=== PATIENT | female | born 1980 | race Caucasian/White ===

== ENCOUNTER → 2017-10-15 | Outpatient (CLI) | payer BC ==
--- NOTE | 2017-10-15 17:20 | US ---
EXAM DESCRIPTION: Liver: ULTRASOUND. CLINICAL HISTORY: R10.11. Right upper quadrant pain. COMPARISON: None. TECHNIQUE: Transabdominal scannin-dimensional and Doppler modes. FINDINGS: Gallbladder: 4.9 mm echogenic nodule on the wall of the gallbladder nonmobile and nonshadowing. No stones or sludge. No fluid around the gallbladder. No wall thickening. 2.4 mm. Non-tender with transducer pressure. Common bile duct: caliber 5.4 mm within normal limits. Liver: Increased echogenicity; contour liver capsule smooth where seen. No fluid around the liver. Intrahepatic biliary ducts normal caliber. Doppler hepatopedal flow portal vein.. 6.6 mm caliber. Long axis right lobe cm Pancreas: Not well visualized due to intestinal gas. Right kidney: long axis measures 9.6 cm. Normal Echogenicity. Normal cortical thickness. No hydronephrosis IMPRESSION: 1. Steatosis of the liver with normal size. Smooth capsule and normal intrahepatic ducts. Normal vascularity and no ascites. Normal caliber of the common bile duct. 2. 5 mm polyp on the wall the gallbladder but no sludge or stones. No wall thickening or fluid. Nontender with transducer pressure. 3. Pancreas not well seen due to intestinal gas. 4. Normal ultrasound of the right kidney. Electronically signed by: Rocky Trotter MD 10/15/2017 5:19 PM CDT
== END ==
LOC: LAB.O 11:39
PROVIDERS: ATTEND Obstetrics & Gynecology
DX: R10.11 Right upper quadrant pain (principal); K76.0 Fatty (change of) liver, not elsewhere classified; K82.4 Cholesterolosis of gallbladder

== ENCOUNTER → 2017-10-28 | Outpatient (CLI) | payer BC ==
--- NOTE | 2017-10-28 09:27 | CT ---
EXAM DESCRIPTION: Abdomen w/Contrast CLINICAL HISTORY: 36 years Female, right upper quadrant pain. COMPARISON: Ultrasound of the right upper quadrant dated 10/15/2017. TECHNIQUE: Contiguous axial images through the abdomen were obtained with intravenous contrast administration. Sagittal and coronal reconstructions were reviewed. FINDINGS: The imaged lower thorax appears normal. The liver demonstrates mild fatty infiltration. The gallbladder, pancreas and spleen appear normal. No adrenal nodules or masses are visualized. Bilateral kidneys enhance symmetrically with no hydronephrosis or nephrolithiasis or perinephric fluid collections. Mild thickening of the distal esophagus could be secondary to reflux. The stomach is not well-distended limiting detailed evaluation. The visualized small and large bowel loops appear grossly unremarkable. The abdominal aorta demonstrates no significant atherosclerosis. The inferior vena cava is normal in size and caliber. No abnormally enlarged lymph nodes are identified. 2.5 cm midline abdominal wall defect is noted at the level of the umbilicus with herniation of fat. IMPRESSION: 1. Mild reflux esophagitis. 2. Hepatic steatosis. 3. 2.5 cm fat-containing umbilical hernia is noted. This exam was performed according to our departmental dose-optimization program, which includes automated exposure control, adjustment of the mA and/or kV according to patient size and/or use of iterative reconstruction technique. Electronically signed by: Zofia Wren MD 10/28/2017 9:25 AM CDT
== END ==
LOC: LAB.O 07:54
PROVIDERS: ATTEND Internal Medicine Gastroenterology
DX: R10.13 Epigastric pain (principal); K20.9 Esophagitis, unspecified; K76.0 Fatty (change of) liver, not elsewhere classified; K42.9 Umbilical hernia without obstruction or gangrene

== ENCOUNTER → 2018-08-20 | Outpatient (CLI) | payer BC | LOC: LAB.O 08:35 | PROVIDERS: ATTEND Obstetrics & Gynecology | DX: N92.0 Excessive and frequent menstruation with regular cycle (principal) ==

== ENCOUNTER 2019-01-24 13:00 | Observation (INO) | payer BC ==
[2019-01-24] MEDS ORDERED: SODIUM CHLORIDE 0.9% 1000ML 1,000 ML IVS ONE (13:28)
[2019-01-24] MEDS ORDERED: SODIUM CHLORIDE 0.9% (FLUSH) 10 ML SYG IV PRN ×2 (13:28→19:07)
[2019-01-24] MEDS ORDERED: ONDANSETRON INJ 4 MG/2 ML VIAL IV ONE (13:28)
[2019-01-24] MEDS ORDERED: DICYCLOMINE HCL INJ 20 MG/2 ML AMP IM ONE (13:29)
--- NOTE | 2019-01-24 15:19 | CT ---
EXAM DESCRIPTION: CT ABDOMEN AND PELVIS WITH CONTRAST CLINICAL HISTORY: RLQ pain COMPARISON: CT abdomen 10/28/2017. TECHNIQUE: CT of the abdomen and pelvis are performed with IV contrast. No oral contrast was given. Multiplanar reconstructions were obtained. FINDINGS: The lung bases are clear. The liver is normal in contour and enhancement. The gallbladder is surgically absent. No biliary ductal dilatation. The Spleen, pancreas, and kidneys are unremarkable. No hydronephrosis or nephrolithiasis. No bowel obstruction. The appendix is slightly patulous (measuring up to 8 mm in diameter) without periappendiceal fat stranding to suggest acute appendicitis. An approximately 2 cm rounded soft tissue attenuation (approximately 50 Hounsfield units) lesion is present within the distal sigmoid colon (approximately 8 cm from the rectosigmoid junction, axial image 67), nonspecific. No associated bowel obstruction. There is no lymphadenopathy, inflammation, or free fluid observed. The partially decompressed bladder is unremarkable. The reproductive organs are unremarkable. A tampon is present within the vagina. No acute osseous abnormality. IMPRESSION: 1. No acute intra-abdominal/pelvic process is seen on CT. 2. Prior cholecystectomy. 3. Incidentally noted 2 cm lesion within the distal sigmoid colon, nonspecific, and may represent a ball of stool versus intraluminal colon mass/polyp. Consider short-term outpatient follow-up with CT pelvis with IV and oral contrast versus direct visualization with colonoscopy. This exam was performed according to our departmental dose-optimization program, which includes automated exposure control, adjustment of the mA and/or kV according to patient size and/or use of iterative reconstruction technique. Electronically signed by: Samuel Irwin DO 01/24/2019 3:17 PM CDT
[2019-01-24] MEDS ORDERED: MORPHINE SULFATE INJ 10 MG/ML VIAL IV ONE (15:52)
--- NOTE | 2019-01-24 15:56 | ED.PDOC ---
History of Present Illness - General Chief Complaint: GI Problem Stated Complaint: RLQ abd pain Time Seen by Provider: 01/24/19 13:28 - History of Present Illness Abdominal Pain Onset Location: RLQ Pain Radiation: RLQ Quality: severe, sharpness Timing/Duration: 24 hours Improving Factors: nothing Worsening Factors: movement Associated Symptoms: nausea/vomiting Review of Systems - Review of Systems Constitutional: States: no symptoms reported EENTM: States: no symptoms reported Respiratory: States: no symptoms reported Cardiology: States: no symptoms reported Gastrointestinal/Abdominal: States: abdominal pain, nausea, vomiting Genitourinary: States: no symptoms reported Musculoskeletal: States: no symptoms reported Skin: States: no symptoms reported Neurological: States: no symptoms reported Endocrine: States: no symptoms reported Hematologic/Lymphatic: States: no symptoms reported Past Medical History (General) - Patient Medical History Hx Stroke: No Hx Asthma: Yes Hx of COPD: No Hx Cardiac Disorders: No Hx Hypertension: Yes Hx Diabetes: No Hx Gastroesophageal Reflux: Yes Hx Cancer: No Surgical History: cholecystectomy - Vaccination History Hx Tetanus, Diphtheria Vaccination: No Hx Influenza Vaccination: No Hx Pneumococcal Vaccination: No - Social History Hx Tobacco Use: No Hx Alcohol Use: Yes - Ocassional - Female History Patient is a Female of Child Bearing Age (10 -59 yrs old): Yes Patient : No - Denies Family Medical History - Family History Mother Family History: Unknown Physical Exam - Physical Exam General Appearance: Alert, Well Developed, Well Groomed, Well Hydrated, Well Nourished Eyes, Ears, Nose, Throat Exam: PERRL/EOMI Neck: non-tender, full range of motion, supple Respiratory: chest non-tender, lungs clear, normal breath sounds Cardiovascular/Chest: normal peripheral pulses, regular rate, rhythm, no edema Peripheral Pulses: No deficit Gastrointestinal/Abdominal: no organomegaly, no pulsatile mass, tenderness - RLQ tenderness Extremity: normal range of motion, non-tender, normal inspection Skin Exam: normal color, warm/dry Lymphatic: no adenopathy Progress - Progress Progress: 01/24/19 16:11 Pt d/w Atif Dolan agreed to admit CT scan d/w Dr Gusman radiology says that he might have early appendicitis Informed Dr Nehemias Robles agreed for the admission Departure - Departure Clinical Impression: Abdominal pain Disposition: Admit Patient Departure Forms: ED Discharge - Pt. Copy, Patient Portal Self Enrollment Instructions: DI for Abdominal Pain-Adult Diet: resume usual diet Activity: increase activity as tolerated, no exercise, no lifting, walking as tolerated Referrals: Vimal Jose MD [Primary Care Provider] - 1-2 Weeks Prescriptions: Dicyclomine HCl [Bentyl] 20 mg PO Q6HR #20 tab Ondansetron Odt [Zofran Odt] 4 mg PO Q8HR #20 tab Home Medications: Ambulatory Orders Dicyclomine HCl [Bentyl] 20 mg PO Q6HR #20 tab 01/24/19 Ondansetron Odt [Zofran Odt] 4 mg PO Q8HR #20 tab 01/24/19 Comments: Follow up PCP in 1-2 days
--- NOTE | 2019-01-24 16:26 | HP ---
SUPERVISING PHYSICIAN: Carlton Barraza MD CHIEF COMPLAINT: Right lower abdominal pain. HISTORY OF PRESENT ILLNESS: Ms. Rose is a 38 year-old female patient who presented to the Emergency Room today complaining of right lower quadrant pain that she noted was severe and sharp. She noted that yesterday she started having some nausea early in the morning. Around noon, she developed some severe nausea and ended up having some vomiting. She did go to work but had additional nausea and vomiting through the night and the pain worsened. It is noted that she is currently on her menstrual cycle and sometimes has pain in her abdomen but she says this is not similar to that type of pain. The pain worsened to the point that she presented to the Emergency Room. Initial workup in the Emergency Room showed she had a normal white count of 8,100 without a shift. Chemistries showed normal electrolytes except for a low potassium of 3.4. Urine was unremarkable with just a trace of blood. Radiology: Abdominal/pelvic CT showed no acute intraabdominal pelvic process seen. There was note that the appendix was slightly patulous measuring 8 mm in diameter but without any periappendiceal fat stranding to suggest acute appendicitis. On exam, the patient was showing severe pain to palpation in the right lower quadrant. She was showing to be hemodynamically stable and afebrile. Dr. Robles, general surgeon, was consulted for evaluation of right lower quadrant pain and recommended the patient be placed in observation overnight for further treatment with concerns for possibly developing acute appendicitis. She was placed in observation in stable condition. PAST MEDICAL HISTORY: 1. Hypertension. 2. Depression. 3. Asthma. 4. Chronic constipation. 5. Seasonal allergies. PAST SURGICAL HISTORY: 1. Tubal ligation. 2. Tummy tuck. 3. Cholecystectomy. CURRENT MEDICATIONS: 1. Promethazine 10 mg daily. 2. Singulair 10 mg daily. 3. Xyzal Allergy 5 mg daily. 4. Maxzide 75/50 mg, 1 tablet daily. 5. Lexapro 20 mg daily. ALLERGIES: Bismuth salicylate. FAMILY HISTORY: Father and mother are both alive. Mother has a history of colon polyps. Father has recently had a stroke, specifically ischemic type stroke. She has one sister who has mental challenges and has hypertension, depression, anxiety. SOCIAL HISTORY: Ms. Rose is and lives in [place]. She currently works in a [place] [employer] [place] for [employer]. She has never smoked, does not use illicit drugs or drink alcohol. REVIEW OF SYSTEMS: CONSTITUTIONAL: Denies fever, chills, general malaise. HEENT: Denies headaches, earache, sore throat, nasal congestion, vision changes. RESPIRATORY: Denies coughing, wheezing, shortness of breath CARDIAC: Denies chest pain, palpitations, syncopal episodes. GASTROINTESTINAL: As per history of present illness. Right lower quadrant with nausea and vomiting. History of constipation, no reported diarrhea. GENITOURINARY: Denies hematuria, dysuria, polyuria. NEUROLOGICAL: Denies ataxia, seizures, syncopal episodes or other neurological deficits. PHYSICAL EXAMINATION: VITAL SIGNS: Temperature 98.1, pulse 58, blood pressure 116/78, respirations 16, oxygen saturation 100% on room air. Admission weight 96.9 kg. GENERAL: The patient appears well-hydrated and well-nourished. She is moderately obese but showing to be in no acute distress. She does seem unwell but is resting comfortably and alert. HEENT: Tympanic membranes are clear bilaterally. Oropharynx is pink, moist without lesions. NECK: Supple, non-tender, full range of motion. No jugular venous distention. CHEST: Lungs clear to auscultation bilaterally without rhonchi, rales, or wheezes. CARDIOVASCULAR: Regular rate and rhythm without appreciable murmurs, rubs, or gallops. ABDOMEN: Soft, tenderness to palpation over the right lower quadrant with no rebound tenderness or guarding. No peritoneal signs. Bowel sounds were active. EXTREMITIES: Without cyanosis, clubbing, or edema. NEUROLOGIC: Alert and oriented x 3. LABORATORY: White count within normal limits at 8,200. Differential was without a left shift. Chemistries showed a mildly low potassium of 3.4, otherwise within normal limits. Creatinine 0.99, lipase normal at 26. Liver functions pending. Urinalysis showed tract of intact blood. RADIOLOGY: Abdominal/pelvic CT with contrast per radiology interpretation showed no acute intraabdominal or pelvic process seen. There was note the appendix was slightly patulous measuring up to 8 mm in diameter without any periappendiceal fat stranding. Please see that report for full details. ASSESSMENT: 1. Acute abdominal pain along the right lower quadrant with associated nausea and vomiting with concerns for developing acute appendicitis requiring surgical consultation. 2. History of hypertension. 3. History of depression. 4. History of asthma. 5. History of chronic constipation. PLAN: Ms. Rose is going to placed in observation. She will be made n.p.o. tonight. Surgical consultation has been ordered by who has seen the patient and recommends she be n.p.o. overnight with concerns that she may be developing an acute appendicitis which he will reassess in the morning and decide whether or not she needs to have a surgical intervention. We will give her pain medication, antiemetics as needed. She will be on fluids Will hold off on DVT prophylaxis until after tomorrow when it is seen whether or not she is actually going to have surgery. We will hold her medications until in the morning and resume those once she has appropriate care, once she is able to take oral intake. Will estimate her length of stay to be one to two days. Until we can transition her back to outpatient management, will continue to monitor and treat as needed. #[id number] [facility]
[2019-01-24] MEDS ORDERED: IV SET AND CAP CHANGE INJ INJ SCH (19:30)
[2019-01-24] MEDS: KCL 20MEQ/D5 1/2NS 1,000 ML IVS PRN (20:14)
[2019-01-24] MEDS: MORPHINE SULFATE INJ 10 MG/ML VIAL IV PRN (20:23)
[2019-01-24] MEDS: ONDANSETRON INJ 4 MG/2 ML VIAL IV PRN (20:23)
[2019-01-25] MEDS: KCL 20MEQ/D5 1/2NS 1,000 ML IVS PRN ×2 (05:05→18:06)
[2019-01-25] MEDS ORDERED: ALBUTEROL SULFATE 2.5 MG/3 ML VIAL NEB PRN (06:48)
[2019-01-25] MEDS: MORPHINE SULFATE INJ 10 MG/ML VIAL IV PRN ×2 (08:21→18:48)
[2019-01-25] MEDS: ONDANSETRON INJ 4 MG/2 ML VIAL IV PRN ×2 (08:31→18:48)
--- NOTE | 2019-01-25 14:43 | CONS ---
DATE OF CONSULTATION: 01/24/19 REASON FOR CONSULTATION: Abdominal pain. HISTORY OF PRESENT ILLNESS: The patient presents with one day of abdominal pain, right lower quadrant and cross the low abdomen associated with nausea and vomiting. No fevers or chills. No known sick contacts. No history of similar symptoms. She has had dysmenorrhea in the past, but she is on her period now and states this is different that what she has felt before. She has had no diarrhea. PAST MEDICAL HISTORY: 1. Hypertension. PAST SURGICAL HISTORY: 1. Tubal ligation. 2. Tummy tuck. FAMILY HISTORY: Noncontributory. SOCIAL HISTORY: She denies any illicit habits. REVIEW OF SYSTEMS: CONSTITUTIONAL: No fevers, no chills. HEENT: No headache, visual changes, sore throat. RESPIRATORY: No cough or wheeze. CARDIOVASCULAR: No chest pain or palpitations. GASTROINTESTINAL: As above. GENITOURINARY: No frequency, dysuria or hematuria. EXTREMITIES: No complaints. NEUROLOGIC: No complaints. PHYSICAL EXAMINATION: VITAL SIGNS: Afebrile. Vital signs are normal. GENERAL: She is conscious, awake, alert and oriented, in no distress. HEENT: Normocephalic, atraumatic. Pupils equal and reactive to light. Sclerae anicteric. Oral mucosa is moist. NECK: Supple. No adenopathy, jugular venous distention or thyromegaly. CHEST: Clear and equal bilaterally. No wheezing or crackles. HEART: Regular rate and rhythm. No murmurs, rubs or gallops. ABDOMEN: Obese, soft. There is tenderness. No rebound in the low abdomen. Mildly distractible, seems more over McBurney's point, but she is also tender just over hip bone. No CVA tenderness. No abnormalities in the skin. EXTREMITIES: No cyanosis, clubbing or edema. LABORATORY: Normal. RADIOLOGY: CT scan is read as normal but for a polyp appearing lesion in the distal sigmoid colon. No inflammation. The appendix is 8 mm, but otherwise normal. There was some mention from the Emergency Room physician talking to the radiologist about possible early appendicitis. IMPRESSION: 1. Abdominal pain, uncertain etiology. PLAN: Admit for observation. We will also address the polyp in her colon later. The patient did offer that her son had 3 polyps removed at the age of 5, but she has no known history of polyps or other gastric cancer in the family. She is admitted for observation and we discussed the possibility of laparoscopy or laparoscopic appendectomy. #[id number] [facility]
[2019-01-25] MEDS: NON-FORMULARY MEDICATION 1 EA MIS PO SCH ×2 (16:11→21:59)
--- NOTE | 2019-01-25 19:52 | PN ---
DATE: 12/3018 SUPERVISING PHYSICIAN: Eleazar Sheikh M.D. SUBJECTIVE: The patient is lying in bed. Her is at the bedside. He continues complaints of abdominal pain but no nausea or vomiting. No shortness of breath or chest pain. OBJECTIVE: VITAL SIGNS: Temperature 98.2, heart rate 80, blood pressure 114/78, respiratory rate 16, O2 sat 100% on room air. RESPIRATORY: Essentially clear to auscultation bilaterally. CARDIAC: Regular rate and rhythm. GASTROINTESTINAL: Abdomen is soft. It is nondistended. It is diffusely tender on the right lower quadrant but there is no rebound tenderness or guarding. NEUROLOGIC: She is awake, alert and oriented times three. LABORATORY: There are no labs or films to report at this time. ASSESSMENT: 1. Acute abdominal pain of uncertain etiology, initially concerns for developing appendicitis. Dr. Robles, general surgeon, has been consulted. 2. History of hypertension. 3. History of depression. 4. History of asthma. 5. History of chronic constipation. PLAN: We will continue present supportive care. At this point I have deferred her abdominal issues to Dr. Robles. He plans to do a colonoscopy on her in the morning. She will be NPO at midnight. She has also had Suprep bowel preparation ordered as per Dr. Robles's recommendations. Will continue to monitor closely and follow as needed. #[id number] [facility]
[2019-01-26] MEDS: KCL 20MEQ/D5 1/2NS 1,000 ML IVS PRN (03:10)
[2019-01-26] MEDS: ONDANSETRON INJ 4 MG/2 ML VIAL IV PRN (09:07)
[2019-01-26] MEDS ORDERED: PROPOFOL 200 MG/20 ML VIAL IV ONE (10:00)
[2019-01-26] MEDS ORDERED: LIDOCAINE 1% 10 ML VIAL INJ ONE (10:00)
[2019-01-26] MEDS ORDERED: MIDAZOLAM INJ 2 MG/2 ML VIAL ONE (10:34)
[2019-01-26] MEDS ORDERED: fentaNYL CITRATE INJ 50 MCG/ML AMP ONE (10:34)
[2019-01-26] MEDS ORDERED: ELECTROLYTE-A 1,000 ML IVS ONE (12:09)
[2019-01-26 13:14] VITALS: O2SAT 100
[2019-01-26 16:24] VITALS: BP 103/71; TEMP 98.6
--- NOTE | 2019-01-29 08:13 | DS ---
SUPERVISING PHYSICIAN: Jena Sheikh MD DISCHARGE DIAGNOSIS: 1. Acute abdominal pain of uncertain etiology, initially concerns for developing appendicitis. Appendicitis was ruled out and the patient was taken for colonoscopy today with removal of a polyp. 2. History of hypertension. 3. History of depression. 4. History of asthma. 5. History of chronic constipation. HISTORY OF PRESENT ILLNESS: This is a 38-year-old female patient who presented to the Emergency Room complaining of right lower quadrant abdominal pain that she noted was severe and sharp. She had had more nausea earlier in the day prior to admission. She did go to work, but because of the nausea and vomiting she had to leave and the pain worsened. She is currently on her menstrual cycle and sometimes has pain in her abdomen is cramping type pain. The pain worsened to the point that she presented to the Emergency Room. Initial workup showed she had a normal white count of 8,100 without a shift. Chemistries showed normal electrolytes except for a low potassium of 3.4. Urine was unremarkable with just a trace of blood. Abdominopelvic CT showed no acute intraabdominal pelvic process. There was note that the appendix was slightly patulous measuring 8 mm in diameter but without any periappendiceal fat stranding to suggest acute appendicitis. On exam, the patient was showing severe pain to palpation in the right lower quadrant. She was hemodynamically stable and afebrile. Dr. Robles, general surgeon, was consulted for evaluation of the patient and there were concerns for appendicitis. She was admitted to the hospital in stable condition. HOSPITAL COURSE: The patient was placed in observation in the hospital. She was made NPO for possible surgery. Surgical consultation was done per Dr. Robles who recommended the NPO status overnight with concerns for developing acute appendicitis. DVT prophylaxis was given as well as her home medications were held due to her NPO status. The following day, Dr. Robles felt the patient was not at risk for appendicitis. Due to her extensive family history of colonic polyps, he took her for a colonoscopy. She had a complete bowel prep and cleanse. On the day of discharge, she was taken down and colonoscopy was completed. Surgery record is as per the EMR. After the procedure, she returned to her room without any problems. Her diet was advanced slowly and she was tolerating her diet. Dr. Robles has given her instructions and she will be discharged home today in stable condition. LABORATORY: Labs and films are as per the history of present illness. DISCHARGE PLAN: The patient will be discharged home in stable condition. She is to increase her activity as tolerated. Her diet is as per Dr. Robles's instructions. There are no new medications to add and she is to continue her home medications as previously ordered. She is to obtained a followup with Dr. Vimal Jose after discharge and she will have an appointment with Dr. Robles as indicated by the surgeon. She is to return to the hospital or followup with Dr. Robles for any problems or complications. DISCHARGE MEDICATIONS: 1. Singulair. 2. Xyzal. 3. Maxzide. 4. Lexapro. 5. Omeprazole. 6. Albuterol nebulizers. #[id number] [facility]
--- NOTE | 2019-02-10 10:54 | OP ---
DATE OF PROCEDURE: 01/26/19 INDICATION: 1. Mass seen on CT scan in the sigmoid colon. 2. Abdominal pain. POSTOPERATIVE DIAGNOSIS: 1. Sigmoid colon polyp, at least 3 cm. PROCEDURE: 1. Colonoscopy. SURGEON: Justin Robles MD ANESTHESIA: General. PROCEDURE: After complete informed consent, this mass was seen on the colonoscopy. It looks like it is intracolonic, possibly coming from the uterus on one view. She was consented. She had an adequate prep. General anesthesia was induced in lateral position. Digital rectal exam was normal. The scope was then passed easily through the cecum. We passed the tumor on the way in and on the way back, we identified the tumor. It was large, taking up the majority of the lumen and appeared to possibly be on a nice stalk. I made multiple attempts to get the loop over it, but it was too large, so I started taking it piecemeal down to its base. Its base was not on a long mucosal stalk, but indeed on a more flat base, possibly 2 to 2.5 cm. I believe it could probably be elevated with submucosal saline injection and removed. However, this would require advanced technique, so we will refer her out for this pending pathology. At this time, pathology has come back and there was some dysplasia in the polyp, but again no invasive cancer and could possibly still be removed entirely endoscopically and avoid surgery. She has been referred to Dr. Patton, I believe, and I believe she has chosen to see somebody else. She tolerated the procedure well. There was no significant bleeding identified. She was then taken back to Recovery. #[id number] [facility]
== END 2019-01-26 17:30 | disposition home or self-care (01) ==
LOC: ER 13:00 → MS 16:24
PROVIDERS: ADMIT Nurse Practitioner Family; ATTEND Nurse Practitioner Acute Care
DX: D37.4 Neoplasm of uncertain behavior of colon (principal); D12.6 Benign neoplasm of colon, unspecified; R10.31 Right lower quadrant pain; R11.2 Nausea with vomiting, unspecified; I10 Essential (primary) hypertension; F32.9 Major depressive disorder, single episode, unspecified; J45.909 Unspecified asthma, uncomplicated; K59.09 Other constipation; E66.9 Obesity, unspecified; Z68.36 Body mass index [BMI] 36.0-36.9, adult; Z79.899 Other long term (current) drug therapy; Z88.8 Allergy status to other drugs, medicaments and biological substances; Z90.49 Acquired absence of other specified parts of digestive tract; Z98.51 Tubal ligation status; Z83.71 Family history of colonic polyps; Z82.3 Family history of stroke; Z82.49 Family history of ischemic heart disease and other diseases of the circulatory system; Z81.8 Family history of other mental and behavioral disorders
CPT/HCPCS: 96366 ×3; 96365; 96375; 96376 ×3; 96372; J7611; J0500; J3010; J2270 ×4; J2405 ×5; J3490; J7030; J2250; 80048; 36415 ×2; 81001; 80076; 85025; 83690; 74177; 94640; 94760 ×2; 99285; 93005; G0378; 45390; 00811